=== PATIENT | male | born 1985 | race Asian ===

== ENCOUNTER 2024-01-20 09:22 | Outpatient (AMB) | payer MEDICAID, SELFPAY ==
--- NOTE | 2024-01-20 09:38 | A.SPINEOV_ITS ---
Intake Intake Visit Reasons: radiculopathy, lumbosacral region Intake Note: Mr. Figueroa is here today c/o low back pain. Patient Partner Required: No Allergies No Known Allergies Allergy (Verified 01/20/24 09:39) Assessment & Plan Assessment & Plan (1) Lumbar degenerative disc disease: Code(s): M51.36 - Other intervertebral disc degeneration, lumbar region Plan Dear colleague Thank you for referring Dereck Figueroa to the office today with a chief complaint of chronic low back pain. HPI: This 38-year-old male developed chronic low back pain approximately 6 years ago. He states that it started at his job with with repetitive movements and lifting. He since then changed jobs. The pain is located in the center of his back and does not radiate into the legs. No weakness or numbness. The pain is severe, , usually 8/10 and exacerbated by prolonged sitting or standing. His sleep is undisturbed. He is tried physical therapy without success. He underwent 3 epidural steroid injections without improvement. He has not tried [id number] medication or chiropractic therapy. PMH: Hypertension Medications: Olmesartan, medoxomil Allergies: Seasonal Social history: . One child. Nonsmoker Physical Exam: Pleasant male. On inspection there are no deformities. SI joint provocative tests are negative. No hip pathology. Neurological exam is intact for motor sensation reflexes. There is mild discomfort on palpation in the lumbar spine. Radiological Studies: MRI done at [facility] in 2018 is compared to an MRI from [place] of November 2023 and show mild lumbar degenerative disc disease L4-5. The remainder of the MRI is intact. Impression/Plan: This 38-year-old male suffering from intractable low back pain not responding to conservative measurements. I advised him to start Tylenol and and possible chiropractic therapy. I advised him to return to my office if these additional conservative measurements do not work. We may consider an artificial disc L4-5 to treat the lumbar degenerative disc disease at this level. Thank you for allowing me to participate in your patients care. total time spent was 50 minutes in counseling ,coordination of plan, personal review of imaging, surgical decision making and subsequent plan Bran Frias MD, PhD Sp[facility] Trained Neurosurgeon Director, [facility] Coding Level of Care Code New Pt Level 4 (62764) Diagnoses Lumbar degenerative disc disease M51.36
== END 2024-01-20 10:11 | disposition home or self-care (01) ==
PROVIDERS: PCP Physician Assistant; Referring Provider Student in an Organized Health Care Education/Training Program; Visit Provider Neurological Surgery
DX: M51.36 Other intervertebral disc degeneration, lumbar region (principal)
CPT/HCPCS: 99204

== ENCOUNTER → 2024-01-20 09:22 | Outpatient (BNVA) | payer MEDICAID, SELFPAY | PROVIDERS: PCP Physician Assistant; Visit Provider Neurological Surgery | DX: M51.36 Other intervertebral disc degeneration, lumbar region (principal) | CPT/HCPCS: 99202 ==